=== PATIENT | male | born 1990 | race Caucasian/White ===

== ENCOUNTER 2021-11-19 21:07 | Inpatient (IN) ==
[2021-11-19] MEDS ORDERED: Tdap (Boostrix) Vaccine 0.5 ML SYRINGE IM ONE (21:49)
[2021-11-19 22:12] LABS: Bilirubin,Urine Negative (Negative); Blood,Urine Negative (Negative); Clarity,Urine Clear (Clear); Color,Urine Colorless (Yellow); Glucose,Urine (UA) Normal (Normal); Ketones,Urine Negative (Negative); Leukocyte Esterase,Urine Negative (Negative); Nitrite,Urine Negative (Negative); PH,Urine 6.5 pH Units (5.0-8.0); Protein,Urine Negative (Neg-Trace); Specific Gravity,Urine 1.005 (1.010-1.025); Urobilinogen,Urine Normal (Normal)
[2021-11-19 22:13] LABS: Basophils # 0.1 K/mcL (0.0-0.2); Basophils % 1.1 %; Eosinophils # 0.3 K/mcL (0.0-0.6); Eosinophils % 3.8 %; Hematocrit 43.9 % (37.5-50.1); Hemoglobin 14.7 g/dL (12.9-16.9); Immature Granulocytes % 0.3 % (0-4); Lymphocytes # 1.9 K/mcL (0.6-4.6); Lymphocytes % 20.9 %; Mean Corpuscular HGB Conc 33.5 g/dL (31.6-35.5); Mean Corpuscular Hemoglobin 29.5 pg (28.0-33.3); Mean Corpuscular Volume 88.2 fL (83.0-100.0); Monocytes # 0.7 K/mcL (0.0-1.3); Monocytes % 8.2 %; Neutrophils # 5.9 K/mcL (1.6-8.9); Platelet Count 392 K/mcL (140-400); Red Blood Count 4.98 M/mcL (4.19-5.50); Red Cell Distribution Width 12.5 % (11.5-14.5); Segmented Neutrophils % 65.7 %
[2021-11-19 22:20] LABS: Amphetamine Screen,Urine Negative ng/mL (Cutoff=1000); Barbiturate Screen,Urine Negative ng/mL (Cutoff=200); Benzodiazepines Screen,Urine Negative ng/mL (Cutoff=200); Cannabinoid Screen,Urine Negative ng/mL (Cutoff = 50); Cocaine Screen,Urine Negative ng/mL (Cutoff= 300); Opiate Screen,Urine Negative ng/mL (Cutoff=300); Phencyclidine Screen,Urine Negative ng/mL (Cutoff=25)
[2021-11-19 22:32] LABS: Estimated Average Glucose 103 mg/dl; Hemoglobin A1C 5.2 %
[2021-11-19 22:33] LABS: Alanine Aminotransferase 21 Units/L (7-52); Albumin 4.4 g/dL (3.5-5.7); Alkaline Phosphatase 123 Units/L (34-104); Aspartate Amino Transferase 46 Units/L (13-39); BUN/Creatinine Ratio 16 (6-26); Bilirubin,Direct 0.1 mg/dL (0.0-0.2); Bilirubin,Indirect 0.2 mg/dL (0.0-1.0); Bilirubin,Total 0.3 mg/dL (0.3-1.0); Blood Urea Nitrogen 18 mg/dL (6-20); Calcium 8.5 mg/dL (8.6-10.3); Carbon Dioxide 23 mEq/L (23-29); Chloride 107 mEq/L (98-107); Glucose 101 mg/dL (70-105); Osmolality,Calculated 294 (280-300); Potassium 3.6 mEq/L (3.5-5.1); Sodium 141 mEq/L (136-145); Total Protein 7.2 g/dL (6.4-8.9); eGFR For African Americans > 60 (> 60); eGFR For Non-African Americans > 60 (> 60)
[2021-11-19 22:34] LABS: Acetaminophen < 10 mcg/mL (10-20); Albumin/Globulin Ratio 1.6 (1.1-2.2); Chol/HDL Ratio 2.2 (0-4.9); Cholesterol 173 mg/dL (< 200); Ethanol 239 mg/dL (Less than 10); Globulin 2.8 g/dL (2.4-3.5); HDL Cholesterol 79 mg/dL (40-59); LDL Cholesterol,Calculated 58 mg/dL (< 100); Salicylate < 2.5 mg/dL (15.0-30.0); Triglycerides 178 mg/dL (< 150)
[2021-11-20 12:29] LABS: Influenza A PCR Negative (Negative); Influenza B PCR Negative (Negative); Resp. Syncytial Virus PCR Negative (Negative)
[2021-11-20 12:41] LABS: SARS-CoV-2 by PCR (In House) Negative (Negative)
[2021-11-20] MEDS ORDERED: Nicotine 2 MG GUM BC PRN (13:03)
[2021-11-20] MEDS ORDERED: *HR* LORazepam 2 MG/ML VIAL IM PRN (13:03)
[2021-11-20] MEDS ORDERED: Mag Hydrox/Al Hydrox/Simeth 30 ML UDC PO PRN (13:03)
[2021-11-20] MEDS ORDERED: Haloperidol Lactate 5 MG/ML VIAL IM PRN (13:03)
[2021-11-20] MEDS ORDERED: hydrOXYzine pamoate 25 MG CAPSULE PO PRN (13:03)
[2021-11-20] MEDS ORDERED: haloperidoL 5 MG TABLET PO PRN (13:03)
[2021-11-20] MEDS ORDERED: *HR* LORazepam 1 MG TABLET PO PRN (13:03)
[2021-11-20] MEDS ORDERED: Ibuprofen 400 MG TABLET PO PRN (13:03)
[2021-11-20] MEDS ORDERED: MOM Conc 10 ML UD.LIQ PO PRN (13:03)
[2021-11-20] MEDS ORDERED: traZODone 50 MG TABLET PO PRN (13:03)
[2021-11-21] MEDS: PARoxetine 10 MG TABLET PO SCH (11:33)
[2021-11-22] MEDS: PARoxetine 10 MG TABLET PO SCH (09:21)
[2021-11-23 09:12] VITALS: BP 134/87; PULSE 81; TEMP 97.6; O2SAT 98
[2021-11-23] MEDS: PARoxetine 10 MG TABLET PO SCH (10:53)
== END 2021-11-23 16:26 | disposition home or self-care (01) | DRG 754 ==
LOC: EMEROOARM 21:07 → SUATTDRO 11-20 12:56 → 1ANU 11-20 12:56
PROVIDERS: ADMIT Psychiatry & Neurology Psychiatry; ATTEND Psychiatry & Neurology Forensic Psychiatry